=== PATIENT | female | born 1990 | race Caucasian/White ===

== ENCOUNTER 2017-03-28 14:48 | Emergency (ER) | payer MEDICAID, OTHER ==
[~2017-03-28] VITALS: Ht 165.1 cm; Wt 77.3 kg
[~2017-03-28 14:48] MED LIST: LEVO13.5 I-UTERINE
[2017-03-28 14:52] VITALS: BP 130/75; PULSE 80; RESP 16; TEMP 98.6; O2SAT 96
[2017-03-28] MEDS ORDERED: [UNRECOGNIZED DRUG - OTHER] (15:05)
[2017-03-28] MEDS ORDERED: SODIUM CHLOR 0.9% 1000 ML INJ 1,000 ML IV SCH (15:11)
[2017-03-28] MEDS ORDERED: SODIUM CHLORIDE 0.9% FLUSH 10 ML FLUSH IV FLUSH PRN (15:15)
[2017-03-28] MEDS ORDERED: KETOROLAC TROMETHAMINE 30 MG/ML (IVP) VIAL IVP ONE (15:15)
[2017-03-28] MEDS ORDERED: ONDANSETRON HCL 4 MG/2 ML VIAL IVP ONE (15:15)
[2017-03-28] MEDS ORDERED: MORPHINE SULFATE 4 MG/ML INJ IV PUSH ONE (15:15)
[2017-03-28 15:17] LABS: BLOOD, URINE SMALL (NEG); GLUCOSE,URINE 100 mg/dL (NEG); KETONE, URINE TRACE mg/dL (NEG)
[2017-03-28 15:20] LABS: NITRITE,URINE POS (NEG)
[2017-03-28 15:30] LABS: URINE COLOR AMBER (YELLW/STRAW)
[2017-03-28 15:31] VITALS: BP 130/62; PULSE 58; RESP 18; O2SAT 98
[2017-03-28 15:31] LABS: BACTERIA, URINE FEW /hpf; SQUAMOUS EPITHELIAL CELL URINE > 8 /hpf (0-5); WBC, URINE INNUM /hpf (0-5)
[2017-03-28 15:32] LABS: COMMENT (UR) CULTURE INDICATED; CULTURE IF INDICATED CULTURE INDICATED
[2017-03-28 15:34] LABS: AUTOMATED NEUTROPHIL # 10.3 TH/MM3 (1.8-7.7); BASOPHIL # 0.2 TH/MM3 (0-0.2); BASOPHIL % 1.1 % (0.0-2.0); EOSINOPHIL # 0.1 TH/MM3 (0-0.4); EOSINOPHIL % 0.7 % (0.0-4.0); HEMATOCRIT 42.2 % (35.0-46.0); LYMPH % 17.8 % (9.0-44.0); LYMPHOCYTE # 2.4 TH/MM3 (1.0-4.8); MEAN CELL VOLUME 88.2 FL (80.0-100.0); MEAN CORPUSCULAR HEMOGLOBIN 29.2 PG (27.0-34.0); MEAN CORPUSCULAR HGB CONC 33.1 % (32.0-36.0); MONO % 5.4 % (0.0-8.0); PLATELET COUNT 333 TH/MM3 (150-450); RED BLOOD COUNT 4.78 MIL/MM3 (4.00-5.30); RED CELL DISTRIBUTION WIDTH 12.5 % (11.6-17.2); WHITE BLOOD COUNT 13.7 TH/MM3 (4.0-11.0)
[2017-03-28 15:45] LABS: BICARBONATE 27.7 MEQ/L (21.0-32.0)
[2017-03-28] MEDS ORDERED: MORPHINE SULFATE 8 MG/ML INJ IV PUSH ONE ×2 (15:45→17:00)
[2017-03-28] MEDS ORDERED: BACT800T5 PO (15:57)
[2017-03-28] MEDS ORDERED: PHEN0.4T PO (15:57)
[2017-03-28] MEDS ORDERED: NORC5TAB PO (15:57)
--- NOTE | 2017-03-28 15:57 | PD ---
HPI Chief Complaint: Flank/Kidney Pain Time Seen by Provider: 14:58 Travel History International Travel<30 days: No Contact w/Intl Traveler<30days: No Traveled to known affect area: No History of Present Illness HPI The patient is a 27-year-old female who presents emergency department for left flank pain. The patient is a 2 day history of left flank pain that is associated with frequency, urgency, and dysuria. The patient has a history of nephrolithiasis with a previous 9 mm kidney stone that she passed on around without stent placement or lithotripsy. She now notes similar symptoms on the left lower abdomen radiating to the left flank. She denies any vaginal discharge or vaginal bleeding, last menstrual cycle was 3 weeks ago, she denies . She does complain of mild nausea without any vomiting. The patient denies any associated fever, chills, or sweats. Symptoms are moderate without any alleviating or exacerbating factors. PFSH Past Medical History Diminished Hearing: No Genitourinary: Yes (UTI) Kidney Stones: Yes Immunizations Current: Yes Influenza Vaccination: Yes PNEUMOCCOCAL Vaccine (Year): 2010 ?: Unknown Menopausal: No : 2 Para: 1 Past Surgical History Surgical History: No Previous Surgery Social History Alcohol Use: Yes Tobacco Use: Yes Substance Use: No Allergies-Medications (Allergen,Severity, Reaction): Coded Allergies: No Known Allergies (Verified , 03/28/17) Reported Meds & Prescriptions Reported Meds & Active Scripts Active Reported [otc azo and urstat] 0 Review of Systems Except as stated in HPI: all other systems reviewed are Neg General / Constitutional: No: Fever, Chills Cardiovascular: No: Chest Pain or Discomfort Respiratory: No: Shortness of Breath Gastrointestinal: No: Nausea, Vomiting, Abdominal Pain Genitourinary: Positive: Urgency, Frequency, Dysuria, Hematuria, Flank Pain, No: Discharge, Vaginal Bleeding Skin: No Rash Physical Exam Narrative GENERAL: Awake, alert, pleasant 27-year-old female who appears her stated age and is in no acute respiratory distress. SKIN: Focused skin assessment warm/dry. HEAD: Atraumatic. Normocephalic. EYES: Pupils equal and round. No scleral icterus. No injection or drainage. ENT: No nasal bleeding or discharge. Mucous membranes pink and moist. NECK: Trachea midline. No JVD. CARDIOVASCULAR: Regular rate and rhythm. No murmur appreciated. RESPIRATORY: No accessory muscle use. Clear to auscultation. Breath sounds equal bilaterally. GASTROINTESTINAL: Abdomen soft, mild left lower quadrant tenderness and suprapubic tenderness. Back: No CVA tenderness. MUSCULOSKELETAL: No obvious deformities. No clubbing. No cyanosis. No edema. NEUROLOGICAL: Awake and alert. No obvious cranial nerve deficits. Motor grossly within normal limits. Normal speech. PSYCHIATRIC: Appropriate mood and affect; insight and judgment normal. Data Data Last Documented VS Vital Signs Date Time Temp Pulse Resp B/P Pulse Ox O2 Delivery O2 Flow Rate FiO2 03/28/17 15:31 58 18 130/62 98 Room Air 03/28/17 14:52 98.6 Orders Urinalysis - C+S If Indicated (03/28/17 15:06) Ed Urine Pregnancytest Poc (03/28/17 15:06) Basic Metabolic Panel (Bmp) (03/28/17 15:11) Complete Blood Count With Diff (03/28/17 15:11) Ct Abd/Pel W/O Iv Contrast (03/28/17 15:11) Iv Access Insert/Monitor (03/28/17 15:11) Ecg Monitoring (03/28/17 15:11) Oximetry (03/28/17 15:11) Morphine Inj (Morphine Inj) (03/28/17 15:15) Ondansetron Inj (Zofran Inj) (03/28/17 15:15) Sodium Chlor 0.9% 1000 Ml Inj (Ns 1000 M (03/28/17 15:11) Sodium Chloride 0.9% Flush (Ns Flush) (03/28/17 15:15) Ketorolac Inj (Toradol Inj) (03/28/17 15:15) Urine Culture (03/28/17 14:10) Morphine Inj (Morphine Inj) (03/28/17 15:45) Labs Laboratory Tests Test 03/28/17 14:10 Urine Color WAYNE Urine Turbidity CLEAR Urine pH 5.0 Urine Specific [place] 1.022 Urine Protein 300 OR GREATER mg/dL Urine Glucose (UA) 100 mg/dL Urine Ketones TRACE mg/dL Urine Occult Blood SMALL Urine Nitrite POS Urine Bilirubin NEG Urine Leukocyte Esterase LARGE Urine RBC 10-14 /hpf Urine WBC INNUM /hpf Urine Squamous Epithelial > 8 /hpf Cells Urine Bacteria FEW /hpf Microscopic Urinalysis Comment CULTURE INDICATED MDM Medical Decision Making Medical Screen Exam Complete: Yes Emergency Medical Condition: Yes Medical Record Reviewed: Yes Interpretation(s) Laboratory Tests Test 03/28/17 14:10 Urine Color WAYNE Urine Turbidity CLEAR Urine pH 5.0 Urine Specific [place] 1.022 Urine Protein 300 OR GREATER mg/dL Urine Glucose (UA) 100 mg/dL Urine Ketones TRACE mg/dL Urine Occult Blood SMALL Urine Nitrite POS Urine Bilirubin NEG Urine Leukocyte Esterase LARGE Urine RBC 10-14 /hpf Urine WBC INNUM /hpf Urine Squamous Epithelial > 8 /hpf Cells Urine Bacteria FEW /hpf Microscopic Urinalysis Comment CULTURE INDICATED Differential Diagnosis Differential diagnosis includes nephrolithiasis, pyelonephritis, hemorrhagic cystitis, hydronephrosis, PID, cervicitis, ovarian cyst, ectopic . Narrative Course IV was established, labs are drawn and sent, and the patient was placed on cardiac telemetry monitoring and continuous pulse oximetry monitoring. Bedside UA test was obtained, was negative. UA was sent to lab which does reveal blood, but has innumerable WBCs with nitrites and leukocyte Estrace. Therefore, patient was administered 1 g Rocephin intravenously. Noncontrast CT the abdomen and pelvis was ordered to evaluate for possible underlying nephrolithiasis with secondary infection. The patient was signed out to the oncoming physician, Dr. Cadet, at 4 PM. Diagnosis Primary Impression: Pyelonephritis Med/Other Pt SpecificInfo: Prescription(s) given Scripts Phenazopyridine (Pyridium)100 Mg [id number] Mg PO Q8H PRN (DYSURIA) 2 Days Ref 0 Prov:Tor Bradley MD 03/28/17 Hydrocodone-Acetaminophen ([place])5-325 mg Tab1 Tab PO Q6H PRN (PAIN) #12 TAB Ref 0 Prov:Tor Bradley MD 03/28/17 Sulfamethoxazole-Trimethoprim (Bactrim DS)800-160 Mg Tab1 Tab PO BID #14 TAB Ref 0 Prov:Tor Bradley MD 03/28/17 Condition: Stable Tor Bradley MD Mar 28, 2017 15:57
[2017-03-28] MEDS ORDERED: cefTRIAXone INJ 1,000 MG in SODIUM CHLORIDE 0.9% INJ 100 ML IV ONE (16:00)
--- NOTE | 2017-03-28 16:08 | RADRPT ---
EXAM DATE/TIME: 03/28/2017 15:38 [facility] COMPARISON: CT ABDOMEN & PELVIS W/O CONTRAST, December 08, 2012, 19:14. INDICATIONS : Left flank pain x 3 days. ORAL CONTRAST: No oral contrast ingested. RADIATION DOSE: 15.41 CTDIvol (mGy) MEDICAL HISTORY : Renal calculi. SURGICAL HISTORY : None. ENCOUNTER: Initial ACUITY: 3 days PAIN SCALE: 7/10 LOCATION: Left flank TECHNIQUE: Volumetric scanning of the abdomen and pelvis was performed. Using automated exposure control and ad justment of the mA and/or kV according to patient size, radiation dose was kept as low as reasonably achievable to obtain optimal diagnostic quality images. DICOM format image data is available electro nically for review and comparison. The lack of IV contrast limits the diagnosis for certain organ pa thology. FINDINGS: LOWER LUNGS: The visualized lower lungs are clear. LIVER: Homogeneous density without lesion. There is no dilation of the biliary tree. No calcified gallston es. SPLEEN: Normal size without lesion. PANCREAS: Within normal limits. KIDNEYS: Normal in size and shape. There is no mass or hydronephrosis. 4 mm stone upper pole left kidney not causing obstruction. Tiny 2 mm stone lower pole left kidney not causing obstruction. The ureters are nondilated. ADRENAL GLANDS: Within normal limits. VASCULAR: There is no aortic aneurysm. BOWEL/MESENTERY: The stomach, small bowel, and colon demonstrate no acute abnormality. There is no free intraperitone al air or fluid. No inflammatory changes. ABDOMINAL WALL: Within normal limits. RETROPERITONEUM: There is no lymphadenopathy. BLADDER: No wall thickening or mass. No calcified stones. REPRODUCTIVE: Within normal limits. There is an IUD in the uterus. INGUINAL: There is no lymphadenopathy or hernia. MUSCULOSKELETAL: Within normal limits for patient age. CONCLUSION: 1. 5 mm nonobstructing stone upper pole left kidney. 2. 2 mm nodule abutting stones lower pole left kidney. 3. No hydronephrosis. Ottoniel Puri MD on March 28, 2017 at 16:02 Board Certified Radiologist. This report was verified electronically.
[2017-03-28 16:21] LABS: POTASSIUM 4.6 MEQ/L (3.5-5.1)
[2017-03-28 16:47] LABS: HEMO FLAGS DIFF FINAL
--- NOTE | 2017-03-28 16:49 | PD ---
Physical Exam Date Seen by Provider: Mar 28, 2017 Data Data Last Documented VS Vital Signs Date Time Temp Pulse Resp B/P Pulse Ox O2 Delivery O2 Flow Rate FiO2 03/28/17 16:55 66 20 117/58 97 03/28/17 15:31 Room Air 03/28/17 14:52 98.6 Orders Urinalysis - C+S If Indicated (03/28/17 15:06) Ed Urine Pregnancytest Poc (03/28/17 15:06) Basic Metabolic Panel (Bmp) (03/28/17 15:11) Complete Blood Count With Diff (03/28/17 15:11) Ct Abd/Pel W/O Iv Contrast (03/28/17 15:11) Iv Access Insert/Monitor (03/28/17 15:11) Ecg Monitoring (03/28/17 15:11) Oximetry (03/28/17 15:11) Morphine Inj (Morphine Inj) (03/28/17 15:15) Ondansetron Inj (Zofran Inj) (03/28/17 15:15) Sodium Chlor 0.9% 1000 Ml Inj (Ns 1000 M (03/28/17 15:11) Sodium Chloride 0.9% Flush (Ns Flush) (03/28/17 15:15) Ketorolac Inj (Toradol Inj) (03/28/17 15:15) Urine Culture (03/28/17 14:10) Morphine Inj (Morphine Inj) (03/28/17 15:45) Ceftriaxone Inj (Rocephin Inj) (03/28/17 16:00) Morphine Inj (Morphine Inj) (03/28/17 17:00) Labs Laboratory Tests Test 03/28/17 03/28/17 14:10 15:20 Urine Color WAYNE Urine Turbidity CLEAR Urine pH 5.0 Urine Specific [place] 1.022 Urine Protein 300 OR GREATER mg/dL Urine Glucose (UA) 100 mg/dL Urine Ketones TRACE mg/dL Urine Occult Blood SMALL Urine Nitrite POS Urine Bilirubin NEG Urine Leukocyte Esterase LARGE Urine RBC 10-14 /hpf Urine WBC INNUM /hpf Urine Squamous Epithelial > 8 /hpf Cells Urine Bacteria FEW /hpf Microscopic Urinalysis Comment CULTURE INDICATED White Blood Count 13.7 TH/MM3 Red Blood Count 4.78 MIL/MM3 Hemoglobin 14.0 GM/DL Hematocrit 42.2 % Mean Corpuscular Volume 88.2 FL Mean Corpuscular Hemoglobin 29.2 PG Mean Corpuscular Hemoglobin 33.1 % Concent Red Cell Distribution Width 12.5 % Platelet Count 333 TH/MM3 Mean Platelet Volume 8.8 FL Neutrophils (%) (Auto) 75.0 % Lymphocytes (%) (Auto) 17.8 % Monocytes (%) (Auto) 5.4 % Eosinophils (%) (Auto) 0.7 % Basophils (%) (Auto) 1.1 % Neutrophils # (Auto) 10.3 TH/MM3 Lymphocytes # (Auto) 2.4 TH/MM3 Monocytes # (Auto) 0.7 TH/MM3 Eosinophils # (Auto) 0.1 TH/MM3 Basophils # (Auto) 0.2 TH/MM3 CBC Comment DIFF FINAL Differential Comment Sodium Level 140 MEQ/L Potassium Level 4.6 MEQ/L Chloride Level 106 MEQ/L Carbon Dioxide Level 27.7 MEQ/L Anion Gap 6 MEQ/L Blood Urea Nitrogen 11 MG/DL Creatinine 0.70 MG/DL Estimat Glomerular Filtration 100 ML/MIN Rate Random Glucose 83 MG/DL Calcium Level 9.5 MG/DL [facility] Medical Record Reviewed: Yes Supervised Visit with SANA: No Interpretation(s) Vital Signs Date Time Temp Pulse Resp B/P Pulse Ox O2 Delivery O2 Flow Rate FiO2 03/28/17 16:11 18 03/28/17 16:02 15 03/28/17 15:31 58 18 130/62 98 Room Air 03/28/17 14:52 98.6 80 16 130/75 96 CBC & BMP Diagram 03/28/17 15:20 Laboratory Tests Test 03/28/17 03/28/17 14:10 15:20 Urine Color WAYNE (YELLW/STRAW) Urine Turbidity CLEAR (CLEAR) Urine pH 5.0 (5.0-8.5) Urine Specific [place] 1.022 (1.002-1.035) Urine Protein 300 OR GREATER mg/dL (NEG-TRACE) Urine Glucose (UA) 100 mg/dL (NEG) Urine Ketones TRACE mg/dL (NEG) Urine Occult Blood SMALL (NEG) Urine Nitrite POS (NEG) Urine Bilirubin NEG (NEG) Urine Leukocyte Esterase LARGE (NEG) Urine RBC 10-14 /hpf (0-3) Urine WBC INNUM /hpf (0-5) Urine Squamous Epithelial > 8 /hpf (0-5) Cells Urine Bacteria FEW /hpf (NONE) Microscopic Urinalysis Comment CULTURE INDICATED Sodium Level 140 MEQ/L (136-145) Potassium Level 4.6 MEQ/L (3.5-5.1) Chloride Level 106 MEQ/L (98-107) Carbon Dioxide Level 27.7 MEQ/L (21.0-32.0) Anion Gap 6 MEQ/L (5-15) Blood Urea Nitrogen 11 MG/DL (7-18) Creatinine 0.70 MG/DL (0.50-1.00) Estimat Glomerular Filtration 100 ML/MIN Rate (>89) Random Glucose 83 MG/DL (74-106) Calcium Level 9.5 MG/DL (8.5-10.1) Last Impressions Abdomen/Pelvis CT 03/28/17 1511 Signed Impressions: Service Date/Time: March 15:38 - CONCLUSION: 1. 5 mm nonobstructing stone upper pole left kidney. 2. 2 mm nodule abutting stones lower pole left kidney. 3. No hydronephrosis. Ottoniel Puri MD Differential Diagnosis Kidney stone, pyelonephritis Narrative Course Patient signed out to me by Dr. Bradley at change of shift Patient is a 27-year-old female who presented to ER with c/o of left sided flank pain which has been going for the past 2 days. Her symptoms have been associated with urinary frequency, urgency and dysuria. Patient reports history of kidney stone in the past which she passed on her own, reports similar symptoms today. Patient currently pending lab work and ct of abdomen and pelvis. CBC & BMP Diagram 03/28/17 15:20 Last Impressions Abdomen/Pelvis CT 03/28/17 1511 Signed Impressions: Service Date/Time: March 15:38 - CONCLUSION: 1. 5 mm nonobstructing stone upper pole left kidney. 2. 2 mm nodule abutting stones lower pole left kidney. 3. No hydronephrosis. Ottoniel Puri MD Patient with a 5 mm stone in the left upper pole of her kidney (copy of ct report was given to patient). WBC 13.7, hemoglobin 14, hematocrit 42.2, platelets 333 Sodium 140, potassium 4.6, BUN 11, creatinine 0.70, glucose 83, carbon dioxide 27.7, chloride 106 UA: Trace ketone, small blood, positive nitrites, large leuk esterase, 10-14 white blood cells, numerous white blood cells, few bacteria; urine culture sent. Patient was given a dose of IV Rocephin for treatment of pyelonephritis. Vital signs have been stable, patient afebrile. There is no hydronephrosis on CT of abdomen and pelvis, stone is nonobstructing in nature. Plan to discharge patient to home with outpatient follow-up with her urologist as well as her primary care doctor. Signs and symptoms of when to return to emergency room was reviewed with patient in detail. Diagnosis Primary Impression: Pyelonephritis Additional Impression: Kidney stone on left side Patient Instructions: General Instructions, Narcotic given in the ED, Kidney Infection (ED) Departure Forms: Tests/Procedures Additional Instruction: Please follow-up with urologist as soon as possible Please follow-up with your primary care doctor Return to the emergency room as needed Please follow-up with all cultures from today Return to emergency room if you develop any fevers or chills, progressing or worsening symptoms Med/Other Pt SpecificInfo: Prescription(s) given Scripts Phenazopyridine (Pyridium)100 Mg [id number] Mg PO Q8H PRN (DYSURIA) 2 Days Ref 0 Prov:Tor Bradley MD 03/28/17 Hydrocodone-Acetaminophen ([place])5-325 mg Tab1 Tab PO Q6H PRN (PAIN) #12 TAB Ref 0 Prov:Tor Bradley MD 03/28/17 Sulfamethoxazole-Trimethoprim (Bactrim DS)800-160 Mg Tab1 Tab PO BID #14 TAB Ref 0 Prov:Tor Bradley MD 03/28/17 Condition: Stable Svetlana Cadet DO Mar 28, 2017 16:49
[2017-03-28 16:55] VITALS: BP 117/58; PULSE 66; RESP 20; O2SAT 97
== END 2017-03-28 17:37 | disposition home or self-care (01) ==
LOC: PHED 14:48
DX: N12 Tubulo-interstitial nephritis, not specified as acute or chronic (principal); B96.20 Unspecified Escherichia coli [E. coli] as the cause of diseases classified elsewhere
CPT/HCPCS: 74176; 80048; 81001; 84703; 85025; 87077; 87086; 87186; 96361; 96365; 96375; 96376; 99285; J0696; J1885; J2270; J2405; J7030

== ENCOUNTER 2017-06-14 13:55 | Emergency (ER) | payer OTHER ==
[~2017-06-14] VITALS: Ht 162.6 cm; Wt 80.0 kg
[~2017-06-14 13:55] MED LIST changes: +BACT800T5 PO; -LEVO13.5 I-UTERINE; +NORC5TAB PO; +PHEN0.4T PO; +[UNRECOGNIZED DRUG - OTHER]
[2017-06-14] MEDS ORDERED: IOHEXOL 350 MG/ML 10 ML VIAL (for RAD DIAG) IVCONTRAST ONE (13:56)
[2017-06-14 13:57] VITALS: BP 145/89; PULSE 71; RESP 19; TEMP 98.3; O2SAT 99
--- NOTE | 2017-06-14 14:08 | PD ---
Physical Exam Time Seen by Provider: 14:07 Narrative 27-year-old female with complaint of a lump to her left neck times one week with worsening. Also is complaining of sore throat. Denies airway edema. Denies difficulty swallowing. Denies fever, vomiting. Patient seen in triage. VS reviewed. Awaiting bed placement. Data Data Last Documented VS Vital Signs Date Time Temp Pulse Resp B/P (MAP) Pulse Ox O2 Delivery O2 Flow Rate FiO2 06/14/17 13:57 98.3 71 19 145/89 (107) 99 Room Air MDM Supervised Visit with SANA: Cielo Mcintyre Jun 14, 2017 14:08
--- NOTE | 2017-06-14 15:23 | PD ---
HPI . Neck mass Chief Complaint: ENT Complaint Time Seen by Provider: 15:09 Travel History International Travel<30 days: No Contact w/Intl Traveler<30days: No Traveled to known affect area: No History of Present Illness HPI This patient presents with the chief complaint of a mass on the left side of her neck. Onset was a week ago. It is getting progressively worse. She describes the pain as a soreness and rates it at 4-6/10. Pain is exacerbated by palpation. Pain is unrelieved by ice. The patient states that she has a mild sore throat. She has not been running a fever. She denies any malaise. She denies any night sweats or weight loss. PFSH Past Medical History Diminished Hearing: No Genitourinary: Yes (UTI) Kidney Stones: Yes Immunizations Current: Yes Tetanus Vaccination: < 5 Years PNEUMOCCOCAL Vaccine (Year): 2010 ?: Unknown LMP: 05/30/17 Menopausal: No : 2 Para: 1 Past Surgical History Surgical History: No Previous Surgery Social History Alcohol Use: Yes (OCC) Tobacco Use: Yes (2 PPW) Substance Use: No (DENIES) Allergies-Medications (Allergen,Severity, Reaction): Coded Allergies: No Known Allergies (Verified , 03/28/17) Reported Meds & Prescriptions Reported Meds & Active Scripts Active No Active Prescriptions or Reported Medications Review of Systems Except as stated in HPI: all other systems reviewed are Neg General / Constitutional: No: Fever, Weight Loss HENT: Positive: Sore Throat Hematologic/Lymphatic: Positive: Lymph Node Enlargement Physical Exam Narrative GENERAL: Awake and alert and in no acute distress. SKIN: warm/dry. No rash or lesions. HEAD: Normocephalic. EYES: Pupils equal and round. No scleral icterus. No injection or drainage. ENT: No nasal bleeding or discharge. Mucous membranes pink and moist. Oropharynx has mild erythema most consistent with postnasal drip. There is no tonsillar enlargement or exudate. NECK: Trachea midline. Full range of motion without pain. She has a mass on the left side of her neck near the superior aspect of her SCM muscle. It is about the size of a quarter. It is tender. There is no erythema or fluctuance. CARDIOVASCULAR: Regular rate and rhythm. RESPIRATORY: No accessory muscle use. Nonlabored MUSCULOSKELETAL: No obvious deformities. NEUROLOGICAL: Awake and alert. No obvious cranial nerve deficits. Motor grossly within normal limits. Normal speech. PSYCHIATRIC: Appropriate mood and affect; insight and judgment normal. Data Data Last Documented VS Vital Signs Date Time Temp Pulse Resp B/P (MAP) Pulse Ox O2 Delivery O2 Flow Rate FiO2 06/14/17 13:57 98.3 71 19 145/89 (107) 99 Room Air Orders Orders Ct Soft Tiss Neck W Iv Cont (06/14/17 15:13) Ed Urine Pregnancytest Poc (06/14/17 15:13) Complete Blood Count With Diff (06/14/17 15:13) Monoscreen (06/14/17 15:13) Group A Rapid Strep Screen (06/14/17 15:13) ^ Saline Lock (06/14/17 15:13) Strep Culture (Group A) (06/14/17 15:20) Labs Laboratory Tests Test 06/14/17 15:20 White Blood Count 9.3 TH/MM3 Red Blood Count 4.78 MIL/MM3 Hemoglobin 14.0 GM/DL Hematocrit 42.1 % Mean Corpuscular Volume 88.1 FL Mean Corpuscular Hemoglobin 29.3 PG Mean Corpuscular Hemoglobin Concent 33.2 % Red Cell Distribution Width 12.8 % Platelet Count 279 TH/MM3 Mean Platelet Volume 8.9 FL Neutrophils (%) (Auto) 66.8 % Lymphocytes (%) (Auto) 24.9 % Monocytes (%) (Auto) 6.2 % Eosinophils (%) (Auto) 1.7 % Basophils (%) (Auto) 0.4 % Neutrophils # (Auto) 6.2 TH/MM3 Lymphocytes # (Auto) 2.3 TH/MM3 Monocytes # (Auto) 0.6 TH/MM3 Eosinophils # (Auto) 0.2 TH/MM3 Basophils # (Auto) 0.0 TH/MM3 CBC Comment DIFF FINAL Differential Comment MDM Medical Decision Making Medical Screen Exam Complete: Yes Emergency Medical Condition: Yes Differential Diagnosis Differential diagnosis includes but is not limited to lymphadenopathy, abscess, lipoma, lymphoma Narrative Course Patient presents for a mass in the left side of her neck. I have ordered a CT of the soft tissues of the neck. I have also ordered a strep screen and a Monospot as well as a CBC. CBC Diagram 06/14/17 15:20 Strep screen is negative. CT>>2.7 cm cystic mass upper left soft tissues of the neck just within the sternocleidomastoid muscle and caudad to the parotid gland. Question as to this representing an enlarged lymph node versus true cyst I will refer her to ENT for further evaluation. Diagnosis Primary Impression: Mass of left side of neck Referrals: Carlos Guzman MD Patient Instructions: General Instructions, Lymphadenopathy (ED) Additional Instructions: Try warm compresses on the lump Med/Other Pt SpecificInfo: Prescription(s) given Scripts Ibuprofen (Ibuprofen) 800 Mg Tab 800 MG PO Q8H Y for Pain/Inflammation, #60 TAB 0 Refills Prov: Malou Wilson MD 06/14/17 Disposition: 01 DISCHARGE HOME Condition: Stable Malou Wilson MD Jun 14, 2017 15:23
[2017-06-14 15:45] LABS: AUTOMATED NEUTROPHIL # 6.2 TH/MM3 (1.8-7.7); BASOPHIL % 0.4 % (0.0-2.0); EOSINOPHIL # 0.2 TH/MM3 (0-0.4); EOSINOPHIL % 1.7 % (0.0-4.0); HEMATOCRIT 42.1 % (35.0-46.0); HEMO FLAGS DIFF FINAL; LYMPH % 24.9 % (9.0-44.0); LYMPHOCYTE # 2.3 TH/MM3 (1.0-4.8); MEAN CELL VOLUME 88.1 FL (80.0-100.0); MEAN CORPUSCULAR HEMOGLOBIN 29.3 PG (27.0-34.0); MEAN CORPUSCULAR HGB CONC 33.2 % (32.0-36.0); MONO % 6.2 % (0.0-8.0); NEUT % 66.8 % (16.0-70.0); PLATELET COUNT 279 TH/MM3 (150-450); RED BLOOD COUNT 4.78 MIL/MM3 (4.00-5.30); RED CELL DISTRIBUTION WIDTH 12.8 % (11.6-17.2); WHITE BLOOD COUNT 9.3 TH/MM3 (4.0-11.0)
--- NOTE | 2017-06-14 16:48 | RADRPT ---
EXAM DATE/TIME: 06/14/2017 16:06 [facility] COMPARISON: No previous studies available for comparison. INDICATIONS : Left side neck lump with sore throat. IV CONTRAST: 86 cc Omnipaque 350 (iohexol) IV RADIATION DOSE: 19.04 CTDIvol (mGy) MEDICAL HISTORY : None SURGICAL HISTORY : None. ENCOUNTER: Initial ACUITY: 1 week PAIN SCALE: 4/10 LOCATION: Left side of neck TECHNIQUE: Volumetric scanning of the neck was performed. Using automated exposure control and adjustment of th e mA and/or kV according to patient size, radiation dose was kept as low as reasonably achievable to obtain optimal diagnostic quality images. DICOM format image data is available electronically for r eview and comparison. FINDINGS: NASOPHARYNX: The nasopharyngeal airway has a normal configuration. No mucosal thickening or mass is seen. OROPHARYNX: The intrinsic muscles of the tongue are symmetric. The tonsillar pillars are intact. The prevertebr al soft tissues are not thickened. LARYNX: The supraglottic, glottic, and infraglottic structures are intact. PARAPHARYNGEAL: There is a 2.6 cm cystic lesion just within the upper sternocleidomastoid muscle on the left and just caudad and is apparently separate from the parotid. Could represent a caseating lymph node.. SALIVARY GLANDS: The parotid and submandibular glands are intact. LYMPH NODES: No enlarged or necrotic-appearing nodes. THYROID: Homogeneous enhancement without evidence of nodule. BONES: Unremarkable. CONCLUSION: 2.7 cm cystic mass upper left soft tissues of the neck just within the sternocleidomastoid muscle and caudad to the parotid gland. Question as to this representing an enlarged lymph node versus true cys t Kd Dela Cruz MD on June 14, 2017 at 16:43 Board Certified Radiologist. This report was verified electronically.
[2017-06-14] MEDS ORDERED: IBUP800T23 PO (16:51)
== END 2017-06-14 17:23 | disposition home or self-care (01) ==
LOC: NEPD 13:55
DX: R22.1 Localized swelling, mass and lump, neck (principal); M54.2 Cervicalgia; R07.0 Pain in throat; Z72.0 Tobacco use; Z87.448 Personal history of other diseases of urinary system
CPT/HCPCS: 70491; 84703; 85025; 86308; 87081; 87880; 99285; Q9967

== ENCOUNTER 2017-08-21 09:02 | Emergency (ER) | payer OTHER ==
[~2017-08-21] VITALS: Ht 162.6 cm; Wt 80.0 kg
[~2017-08-21 09:02] MED LIST changes: -BACT800T5 PO; +IBUP1TAB7 PO; -NORC5TAB PO; -PHEN0.4T PO; -[UNRECOGNIZED DRUG - OTHER]
[2017-08-21 09:06] VITALS: BP 120/67; PULSE 79; RESP 16; TEMP 98.7; O2SAT 98
--- NOTE | 2017-08-21 10:00 | PD ---
HPI Chief Complaint: Lump, Cyst, Hernia Time Seen by Provider: 09:41 Travel History International Travel<30 days: No Contact w/Intl Traveler<30days: No Traveled to known affect area: No History of Present Illness HPI This 27-year-old female is complaining of a mass on the left side of her neck. This mass is been there for about 3 months. She was here for a month ago and had a CT scan which showed it to be a cystic structure posterior to the parotid on the left side. At that time was about 2.7 cm in size. He says it has increased size. She has not had fever or chills. PFSH Past Medical History Medical History: Denies Significant Hx Diminished Hearing: No Genitourinary: Yes (UTI) Kidney Stones: Yes Immunizations Current: Yes PNEUMOCCOCAL Vaccine (Year): 2010 ?: Not LMP: 08/16/2017 Menopausal: No : 2 Para: 1 Social History Alcohol Use: Yes (OCC) Tobacco Use: Yes (2 PPW) Substance Use: No (DENIES) Allergies-Medications (Allergen,Severity, Reaction): Coded Allergies: No Known Allergies (Verified Adverse Reaction, Unknown, 08/21/17) Reported Meds & Prescriptions Reported Meds & Active Scripts Active No Active Prescriptions or Reported Medications Review of Systems General / Constitutional: No: Fever, Chills Eyes: No: Diploplia HENT: Positive: Neck Pain, Masses Cardiovascular: No: Chest Pain or Discomfort Respiratory: No: Cough, Shortness of Breath Gastrointestinal: No: Nausea, Vomiting Genitourinary: No: Urgency, Frequency Neurologic: No: Weakness Physical Exam Narrative GENERAL: [-] SKIN: Focused skin assessment warm/dry. HEAD: Atraumatic. Normocephalic. EYES: Pupils equal and round. No scleral icterus. No injection or drainage. ENT: No nasal bleeding or discharge. Mucous membranes pink and moist. NECK: Trachea midline. No JVD. On the left side of the neck starting around the ear there is a 7 by 4 cm smooth mass. It is not red or hot. There is no lymphadenopathy. It is not fixed MUSCULOSKELETAL: No obvious deformities. No clubbing. No cyanosis. No edema. NEUROLOGICAL: Awake and alert. No obvious cranial nerve deficits. Motor grossly within normal limits. Normal speech. PSYCHIATRIC: Appropriate mood and affect; insight and judgment normal. Data Data Last Documented VS Vital Signs Date Time Temp Pulse Resp B/P (MAP) Pulse Ox O2 Delivery O2 Flow Rate FiO2 08/21/17 09:06 98.7 79 16 120/67 (84) 98 MDM Medical Decision Making Medical Screen Exam Complete: Yes Emergency Medical Condition: Yes Medical Record Reviewed: Yes Differential Diagnosis Differential includes neck cyst, lymph nodes Narrative Course Patient has previously had a CT which shows this to be a cystic structure. She is here now because it has increased in size and she wishes to have it removed. She was under the impression that her insurance was not active however our renal case manager has determined that she does have insurance. She will be released with recommendations for follow-up with surgery, she will probably need to get referral from her primary care doctor Diagnosis Primary Impression: Unilateral mass of neck Additional Instructions: Follow-up with primary care doctor for referral to surgery Scripts No Active Prescriptions or Reported Meds Disposition: 01 DISCHARGE HOME Condition: Stable Owen Cardona MD Aug 21, 2017 10:00
== END 2017-08-21 10:13 | disposition home or self-care (01) ==
LOC: PHED 09:02
DX: R22.1 Localized swelling, mass and lump, neck (principal); F17.200 Nicotine dependence, unspecified, uncomplicated
CPT/HCPCS: 99282